=== PATIENT | female | born 1985 | race Two or more races ===

== ENCOUNTER → 2018-07-29 | Outpatient (CLI) | payer OTHER | END | disposition home or self-care (01) | LOC: LB 13:50 | DX: L70.0 Acne vulgaris (principal) ==

== ENCOUNTER → 2018-08-24 | Outpatient (CLI) | payer OTHER | END | disposition home or self-care (01) | LOC: LB 08:30 | PROVIDERS: Dermatology | DX: L70.0 Acne vulgaris (principal) ==

== ENCOUNTER → 2018-09-28 | Outpatient (CLI) | payer OTHER ==
[2018-09-28 09:38] LABS: CHOLESTEROL/HDL RATIO 4.3
== END | disposition home or self-care (01) ==
LOC: LB 07:21
PROVIDERS: Dermatology
DX: L70.0 Acne vulgaris (principal)